=== PATIENT | female | born 1995 | race Caucasian/White ===

== ENCOUNTER 2016-07-21 11:52 | Emergency (ER) | payer OTHER ==
[~2016-07-21] VITALS: Ht 162.5 cm; Wt 83.9 kg
[~2016-07-21 11:52] MED LIST: AMOXICILLIN500 M2 PO; ANUSOL-HC25 MG R; BACTRIM DS 8001 TA1 PO; CEPHALEXIN500 M1 PO; CIPRO500 MG PO; CLARITIN10 MG PO; FLONASE ALLERG9.9 ML INH; HYDROCODONE BIT1 T11 PO; IBU400 MG PO; KEFLEX500 MG PO; MACROBID100 M1 PO; MACRODANTIN100 MG PO; MOTRIN400 MG PO; MOTRIN800 MG PO; PNV PRENATAL P1 EACH PO; PRENATAL1 TA7 PO; PROCTOFOAM-HC 11 FOA RC; PROMETHAZINE25 M1 PO; TYLENOL325 M1 PO; ZITHROMAX Z PA250 MG PO; ZOFRAN ODT4 MG SL; ZYRTEC10 MG PO
[2016-07-21 11:56] VITALS: BP 151/83
[2016-07-21] MEDS ORDERED: AMOXICILLIN875 MG PO (12:52)
== END 2016-07-21 13:59 | disposition home or self-care (01) ==
LOC: ED 11:52
DX: H66.92 Otitis media, unspecified, left ear (principal); F17.200 Nicotine dependence, unspecified, uncomplicated; Z98.890 Other specified postprocedural states; Z88.8 Allergy status to other drugs, medicaments and biological substances; Z91.011 Allergy to milk products

== ENCOUNTER → 2016-08-10 | Outpatient (CLI) | payer OTHER ==
[~2016-08-10] MED LIST changes: +AMOXICILLIN875 MG PO
== END | disposition home or self-care (01) ==
LOC: US 15:22
DX: Z34.82 Encounter for supervision of other normal pregnancy, second trimester (principal)

== ENCOUNTER → 2016-10-14 | Outpatient (CLI) | payer OTHER | END | disposition home or self-care (01) | LOC: LAB 08:15 | DX: R73.02 Impaired glucose tolerance (oral) (principal) ==

== ENCOUNTER 2017-02-19 14:08 | Emergency (ER) | payer OTHER ==
[~2017-02-19] VITALS: Ht 162.5 cm; Wt 77.1 kg
[2017-02-19 14:40] VITALS: BP 134/97
[2017-02-19 15:05] LABS: HEMATOCRIT 35.5 % (37.0-47.0); HEMOGLOBIN 11.5 g/dl (12.0-16.0); MEAN CELL VOLUME 81.4 fl (81.0-99.0); MEAN CORPUSCULAR HGB 26.4 pg (27.0-31.0); MEAN CORPUSCULAR HGB CONC 32.4 g/dl (33.0-37.0); MEAN PLATELET VOLUME 10.4 fl (9.6-12.3); PLATELET COUNT AUTOMATED 145 10*3/uL (130-400); RED BLOOD COUNT 4.36 10*6/uL (4.10-5.10); WHITE BLOOD COUNT 5.2 10*3/uL (4.8-10.8)
[2017-02-19 15:12] LABS: BILIRUBIN NEGATIVE (NEGATIVE); BLOOD 3+ (NEGATIVE); CLARITY CLEAR (CLEAR); COLOR YELLOW (YELLOW); GLUCOSE NEGATIVE (NEGATIVE); KETONE NEGATIVE (NEGATIVE); LEUKO ESTERASE NEGATIVE (NEGATIVE); NITRITE NEGATIVE (NEGATIVE); PH 5.5 (5.0-9.0); UROBILINOGEN 0.2 E.U./dl (0.2-1.0)
[2017-02-19 15:19] LABS: BUN 11 mg/dl (7-24); CHLORIDE 107 mmol/L (98-107); CREATININE 0.56 mg/dL (0.55-1.02); POTASSIUM 3.9 mmol/L (3.5-5.1); SODIUM 143 mmol/L (136-145)
[2017-02-19 15:21] LABS: BACTERIA 1+; EPITHELIAL CELLS 0-2; WBC 0-2 wbc/hpf (0-5)
[2017-02-19 15:25] LABS: BETA-HCG, QUANT < 1.0 mIU/mL (1-3)
[2017-02-19 15:37] LABS: TOTAL CELLS COUNTED 100 #CELLS
[2017-02-19 15:40] LABS: OVALOCYTES FEW; PLATELET SUFFICIENCY NORMAL (NORMAL)
== END 2017-02-19 18:27 | disposition home or self-care (01) ==
LOC: ED 14:08
PROVIDERS: Emergency Medicine
DX: N93.9 Abnormal uterine and vaginal bleeding, unspecified (principal); F17.200 Nicotine dependence, unspecified, uncomplicated; Z98.890 Other specified postprocedural states; Z88.8 Allergy status to other drugs, medicaments and biological substances; Z91.011 Allergy to milk products

== ENCOUNTER 2017-02-22 19:04 | Emergency (ER) | payer OTHER ==
[~2017-02-22] VITALS: Ht 162.5 cm; Wt 77.1 kg
[2017-02-22 19:11] VITALS: BP 130/90
== END 2017-02-22 19:34 | disposition home or self-care (01) ==
LOC: ED 19:04
DX: M25.561 Pain in right knee (principal); J45.909 Unspecified asthma, uncomplicated; Z91.011 Allergy to milk products; Z88.8 Allergy status to other drugs, medicaments and biological substances

== ENCOUNTER 2017-03-29 16:34 | Emergency (ER) | payer OTHER ==
[~2017-03-29] VITALS: Ht 162.5 cm; Wt 77.6 kg
[2017-03-29 16:39] VITALS: BP 151/93
[2017-03-29 17:22] LABS: BASO % 0.3 % (0.0-1.0); EOS % 0.5 % (1.0-4.0); HEMATOCRIT 37.5 % (37.0-47.0); HEMOGLOBIN 12.2 g/dl (12.0-16.0); LYMPH # 1.7 10*3/uL (1.3-4.4); LYMPH % 23.4 % (27.0-41.0); MEAN CELL VOLUME 82.2 fl (81.0-99.0); MEAN CORPUSCULAR HGB 26.8 pg (27.0-31.0); MEAN CORPUSCULAR HGB CONC 32.5 g/dl (33.0-37.0); MEAN PLATELET VOLUME 10.4 fl (9.6-12.3); MONO # 0.5 10*3/uL (0.1-1.0); MONO % 6.4 % (3.0-9.0); NEUT # 5.1 10*3/uL (2.3-7.9); NEUT % 69.1 % (47.0-73.0); PLATELET COUNT AUTOMATED 154 10*3/uL (130-400); RED BLOOD COUNT 4.56 10*6/uL (4.10-5.10); RED CELL DISTRI WIDTH 14.6 % (0-14.5); WHITE BLOOD COUNT 7.3 10*3/uL (4.8-10.8)
[2017-03-29 17:43] LABS: BILIRUBIN NEGATIVE (NEGATIVE); BLOOD 3+ (NEGATIVE); CLARITY CLEAR (CLEAR); COLOR YELLOW (YELLOW); GLUCOSE NEGATIVE (NEGATIVE); KETONE NEGATIVE (NEGATIVE); LEUKO ESTERASE NEGATIVE (NEGATIVE); NITRITE NEGATIVE (NEGATIVE); PH 5.5 (5.0-9.0); SPECIFIC GRAVITY <= 1.005 (1.005-1.030); UROBILINOGEN 0.2 E.U./dl (0.2-1.0)
[2017-03-29 17:44] LABS: ALBUMIN 4.2 gm/dl (3.1-4.5); ALKALINE PHOSPHATASE 76 U/L (45-117); BUN 10 mg/dl (7-24); CHLORIDE 106 mmol/L (98-107); CREATININE 0.61 mg/dL (0.55-1.02); POTASSIUM 3.6 mmol/L (3.5-5.1); SGOT/AST 17 IU/L (3-35); SGPT/ALT 27 U/L (12-78); SODIUM 140 mmol/L (136-145); TOTAL PROTEIN 7.4 gm/dL (6.4-8.2)
[2017-03-29 17:51] LABS: BACTERIA TRACE; EPITHELIAL CELLS 50-55; RBC 21-30 rbc/hpf (0-2); WBC 0-2 wbc/hpf (0-5)
== END 2017-03-29 18:01 | disposition home or self-care (01) ==
LOC: ED 16:34
PROVIDERS: Physician Assistant
DX: R53.83 Other fatigue (principal); F17.200 Nicotine dependence, unspecified, uncomplicated; D64.9 Anemia, unspecified; Z91.011 Allergy to milk products

== ENCOUNTER 2017-12-20 18:10 | Emergency (ER) | payer SELFPAY ==
[~2017-12-20] VITALS: Ht 162.5 cm; Wt 76.2 kg
[2017-12-20 18:10] VITALS: BP 137/84
[2017-12-20 18:34] LABS: BASO % 0.3 % (0.0-1.0); EOS # 0.1 10*3/uL (0.0-0.4); EOS % 0.7 % (1.0-4.0); HEMATOCRIT 36.8 % (37.0-47.0); LYMPH # 1.4 10*3/uL (1.3-4.4); LYMPH % 19.7 % (27.0-41.0); MEAN CELL VOLUME 85.6 fl (81.0-99.0); MEAN CORPUSCULAR HGB 27.9 pg (27.0-31.0); MEAN CORPUSCULAR HGB CONC 32.6 g/dl (33.0-37.0); MEAN PLATELET VOLUME 10.2 fl (9.6-12.3); MONO # 0.3 10*3/uL (0.1-1.0); MONO % 4.6 % (3.0-9.0); NEUT # 5.2 10*3/uL (2.3-7.9); NEUT % 74.4 % (47.0-73.0); PLATELET COUNT AUTOMATED 150 10*3/uL (130-400); RED CELL DISTRI WIDTH 14.3 % (0-14.5); WHITE BLOOD COUNT 6.9 10*3/uL (4.8-10.8)
[2017-12-20 18:42] LABS: ACT PARTIAL THROMBO TIME 23.1 SECONDS (20.8-31.5)
[2017-12-20 18:47] LABS: BUN 12 mg/dl (7-24); CHLORIDE 108 mmol/L (98-107); CREATININE 0.64 mg/dL (0.55-1.02); POTASSIUM 3.9 mmol/L (3.5-5.1); SODIUM 142 mmol/L (136-145)
[2017-12-20 18:52] LABS: B-hCG (QUALITATIVE) NEGATIVE (NEGATIVE)
== END 2017-12-20 19:15 | disposition home or self-care (01) ==
LOC: ED 18:10
PROVIDERS: Emergency Medicine
DX: N94.89 Other specified conditions associated with female genital organs and menstrual cycle (principal); Z91.011 Allergy to milk products; Z88.8 Allergy status to other drugs, medicaments and biological substances

== ENCOUNTER 2018-04-07 11:21 | Emergency (ER) | payer SELFPAY ==
[~2018-04-07] VITALS: Ht 162.5 cm; Wt 72.6 kg
[2018-04-07 11:22] VITALS: BP 126/84
[2018-04-07] MEDS ORDERED: OFLOXACIN OTIC5 ML OT (11:41)
== END 2018-04-07 11:46 | disposition home or self-care (01) ==
LOC: ED 11:21
DX: H60.92 Unspecified otitis externa, left ear (principal); R03.0 Elevated blood-pressure reading, without diagnosis of hypertension; J45.909 Unspecified asthma, uncomplicated; Z79.899 Other long term (current) drug therapy; Z91.011 Allergy to milk products

== ENCOUNTER 2018-06-27 20:15 | Emergency (ER) | payer SELFPAY ==
[~2018-06-27] VITALS: Ht 162.5 cm; Wt 77.1 kg
[~2018-06-27 20:15] MED LIST changes: +OFLOXACIN OTIC5 ML OT
[2018-06-27 20:22] VITALS: BP 137/86
[2018-06-27 21:12] LABS: BASO % 0.1 % (0.0-1.0); EOS # 0.1 10*3/uL (0.0-0.4); EOS % 0.6 % (1.0-4.0); HEMATOCRIT 38.9 % (37.0-47.0); HEMOGLOBIN 12.5 g/dl (12.0-16.0); LYMPH # 1.6 10*3/uL (1.3-4.4); LYMPH % 19.7 % (27.0-41.0); MEAN CELL VOLUME 84.7 fl (81.0-99.0); MEAN CORPUSCULAR HGB 27.2 pg (27.0-31.0); MEAN CORPUSCULAR HGB CONC 32.1 g/dl (33.0-37.0); MEAN PLATELET VOLUME 10.5 fl (9.6-12.3); MONO # 0.4 10*3/uL (0.1-1.0); MONO % 4.9 % (3.0-9.0); NEUT # 5.9 10*3/uL (2.3-7.9); NEUT % 74.4 % (47.0-73.0); PLATELET COUNT AUTOMATED 171 10*3/uL (130-400); RED BLOOD COUNT 4.59 10*6/uL (4.10-5.10); RED CELL DISTRI WIDTH 14.6 % (0-14.5); WHITE BLOOD COUNT 7.9 10*3/uL (4.8-10.8)
[2018-06-27 21:26] LABS: ALBUMIN 4.3 gm/dl (3.1-4.5); ALKALINE PHOSPHATASE 69 U/L (45-117); BUN 9 mg/dl (7-24); CHLORIDE 110 mmol/L (98-107); CREATININE 0.72 mg/dL (0.55-1.02); POTASSIUM 3.6 mmol/L (3.5-5.1); SGOT/AST 14 IU/L (3-35); SGPT/ALT 18 U/L (12-78); SODIUM 142 mmol/L (136-145); TOTAL PROTEIN 7.6 gm/dL (6.4-8.2)
== END 2018-06-27 22:30 | disposition home or self-care (01) ==
LOC: ED 20:15
PROVIDERS: Physician Assistant
DX: B27.90 Infectious mononucleosis, unspecified without complication (principal); R53.83 Other fatigue; R05 Cough; F17.200 Nicotine dependence, unspecified, uncomplicated; Z88.8 Allergy status to other drugs, medicaments and biological substances; Z91.011 Allergy to milk products

== ENCOUNTER 2018-10-13 14:13 | Emergency (ER) | payer SELFPAY ==
[~2018-10-13] VITALS: Ht 162.5 cm; Wt 74.8 kg
[2018-10-13 14:14] VITALS: BP 130/88
[2018-10-13] MEDS ORDERED: TESSALON PERLE100 M1 PO (15:16)
[2018-10-13] MEDS ORDERED: PREDNISONE20 M1 PO (15:16)
== END 2018-10-13 15:27 | disposition home or self-care (01) ==
LOC: ED 14:13
DX: J45.909 Unspecified asthma, uncomplicated (principal); Z88.8 Allergy status to other drugs, medicaments and biological substances; Z91.011 Allergy to milk products

== ENCOUNTER 2019-01-10 19:38 | Emergency (ER) | payer SELFPAY ==
[~2019-01-10] VITALS: Ht 162.5 cm; Wt 74.8 kg
[~2019-01-10 19:38] MED LIST changes: +PREDNISONE20 M1 PO; +TESSALON PERLE100 M1 PO
[2019-01-10 19:41] VITALS: BP 146/77
[2019-01-10] MEDS ORDERED: AMOXICILLIN500 M2 PO (21:27)
[2019-01-10] MEDS ORDERED: IBUPROFEN600 MG PO (21:27)
== END 2019-01-10 22:16 | disposition home or self-care (01) ==
LOC: ED 19:38
DX: J02.9 Acute pharyngitis, unspecified (principal); R09.81 Nasal congestion; R05 Cough; J45.909 Unspecified asthma, uncomplicated; Z88.8 Allergy status to other drugs, medicaments and biological substances; Z91.011 Allergy to milk products

== ENCOUNTER 2019-02-07 21:05 | Emergency (ER) | payer SELFPAY ==
[~2019-02-07] VITALS: Ht 162.5 cm; Wt 74.8 kg
[2019-02-07 21:05] VITALS: BP 143/86
[~2019-02-07 21:05] MED LIST changes: +IBUPROFEN600 MG PO
[2019-02-07] MEDS ORDERED: AUGMENTIN 875875 MG PO (21:16)
== END 2019-02-07 22:00 | disposition home or self-care (01) ==
LOC: ED 21:05
DX: H66.92 Otitis media, unspecified, left ear (principal); J45.909 Unspecified asthma, uncomplicated; Z88.8 Allergy status to other drugs, medicaments and biological substances; Z91.011 Allergy to milk products

== ENCOUNTER 2019-02-20 23:42 | Emergency (ER) | payer SELFPAY ==
[~2019-02-20] VITALS: Ht 162.5 cm; Wt 72.6 kg
[~2019-02-20 23:42] MED LIST changes: +AUGMENTIN 875875 MG PO
[2019-02-20 23:45] VITALS: BP 139/82
[2019-02-21] MEDS ORDERED: PEPCID AC20 MG PO (00:02)
== END 2019-02-21 00:45 | disposition home or self-care (01) ==
LOC: ED 23:42
DX: K52.9 Noninfective gastroenteritis and colitis, unspecified (principal); J06.9 Acute upper respiratory infection, unspecified; J45.909 Unspecified asthma, uncomplicated; Z91.011 Allergy to milk products; Z88.8 Allergy status to other drugs, medicaments and biological substances

== ENCOUNTER 2019-08-06 13:37 | Emergency (ER) | payer OTHER ==
[~2019-08-06] VITALS: Ht 162.5 cm; Wt 74.8 kg
[~2019-08-06 13:37] MED LIST changes: +PEPCID AC20 MG PO
[2019-08-06 13:47] VITALS: BP 142/83
[2019-08-06 14:36] LABS: BASO % 0.2 % (0.0-1.0); EOS % 0.5 % (1.0-4.0); HEMATOCRIT 33.5 % (37.0-47.0); LYMPH # 1.3 10*3/uL (1.3-4.4); LYMPH % 20.8 % (27.0-41.0); MEAN CELL VOLUME 80.7 fl (81.0-99.0); MEAN CORPUSCULAR HGB 24.8 pg (27.0-31.0); MEAN CORPUSCULAR HGB CONC 30.7 g/dl (33.0-37.0); MEAN PLATELET VOLUME 9.6 fl (9.6-12.3); MONO # 0.3 10*3/uL (0.1-1.0); MONO % 5.1 % (3.0-9.0); NEUT # 4.5 10*3/uL (2.3-7.9); NEUT % 73.2 % (47.0-73.0); PLATELET COUNT AUTOMATED 151 10*3/uL (130-400); RED BLOOD COUNT 4.15 10*6/uL (4.10-5.10); RED CELL DISTRI WIDTH 14.3 % (0-14.5); WHITE BLOOD COUNT 6.1 10*3/uL (4.8-10.8)
[2019-08-06 14:52] LABS: ALBUMIN 3.9 gm/dl (3.1-4.5); ALKALINE PHOSPHATASE 65 U/L (45-117); BUN 9 mg/dl (7-24); CHLORIDE 108 mmol/L (98-107); CREATININE 0.55 mg/dL (0.55-1.02); POTASSIUM 3.8 mmol/L (3.5-5.1); SGOT/AST 12 IU/L (3-35); SGPT/ALT 20 U/L (12-78); SODIUM 140 mmol/L (136-145); TOTAL PROTEIN 7.4 gm/dL (6.4-8.2)
[2019-08-06 14:53] LABS: CPK 95 U/L (26-192)
[2019-08-06 15:34] LABS: BACTERIA 1+; BILIRUBIN NEGATIVE (NEGATIVE); BLOOD NEGATIVE (NEGATIVE); CLARITY SL CLOUDY (CLEAR); COLOR YELLOW (YELLOW); EPITHELIAL CELLS TNTC; GLUCOSE NEGATIVE (NEGATIVE); KETONE NEGATIVE (NEGATIVE); LEUKO ESTERASE NEGATIVE (NEGATIVE); NITRITE NEGATIVE (NEGATIVE); PH 6.5 (5.0-9.0); SPECIFIC GRAVITY 1.005 (1.005-1.030); UROBILINOGEN 0.2 E.U./dl (0.2-1.0)
== END 2019-08-06 16:25 | disposition home or self-care (01) ==
LOC: ED 13:37
PROVIDERS: Emergency Medicine
DX: R11.0 Nausea (principal); R42 Dizziness and giddiness; R53.1 Weakness; R51 Headache; M54.9 Dorsalgia, unspecified; J45.909 Unspecified asthma, uncomplicated; F17.200 Nicotine dependence, unspecified, uncomplicated; Z88.8 Allergy status to other drugs, medicaments and biological substances; Z91.011 Allergy to milk products

== ENCOUNTER 2020-08-11 19:12 | Emergency (ER) | payer OTHER ==
[~2020-08-11] VITALS: Ht 162.5 cm; Wt 72.6 kg
[2020-08-11 19:26] VITALS: BP 135/78
[2020-08-11] MEDS ORDERED: NAPROSYN500 MG PO (19:46)
== END 2020-08-11 19:49 | disposition home or self-care (01) ==
LOC: ED 19:12
DX: S93.401A Sprain of unspecified ligament of right ankle, initial encounter (principal); Z79.899 Other long term (current) drug therapy; W10.9XXA Fall (on) (from) unspecified stairs and steps, initial encounter; Y93.89 Activity, other specified; Y92.89 Other specified places as the place of occurrence of the external cause; Y99.8 Other external cause status

== ENCOUNTER 2021-07-25 19:37 | Emergency (ER) | payer OTHER ==
[~2021-07-25 19:37] MED LIST changes: +NAPROSYN500 MG PO
== END 2021-07-25 20:25 | disposition left against medical advice (07) ==
LOC: ED 19:37
DX: G43.909 Migraine, unspecified, not intractable, without status migrainosus (principal); R05.9 Cough, unspecified